=== PATIENT | male | born 1950 | race Hispanic/Latino ===

== ENCOUNTER 2017-01-30 14:04 | Emergency (ER) | payer OTHER ==
[~2017-01-30] VITALS: Ht 170.2 cm; Wt 68.0 kg
[2017-01-30] MEDS ORDERED: ONDANSETRON ODT8 MG PO (17:11)
[2017-01-30] MEDS ORDERED: NORCO 5-325 TA1 EACH PO (17:11)
== END 2017-01-30 17:32 | disposition home or self-care (01) ==
LOC: ED 14:04
DX: N20.0 Calculus of kidney (principal)
CPT/HCPCS: 74176; 80053; 81001; 85025; 96374; 99284; J1885; J7030